=== PATIENT | female | born 1965 | race African-American/Black ===

== ENCOUNTER 2017-07-13 07:50 | Inpatient (IN) | payer OTHER ==
[2017-07-13 08:35] LABS: ADD MAN DIFF? NO
[2017-07-13 08:38] LABS: WHITE BLOOD COUNT 4.4 10^3/ul (4.8-10.8)
[2017-07-13 08:38] LABS: BASOPHILS % 0.9 % (0.0-2.0); EOSINOPHILS # 0.2 10^3/ul (0.0-0.5); EOSINOPHILS % 3.9 % (0.0-7.0); HEMATOCRIT 26.4 % (37.0-47.0); HEMOGLOBIN 8.1 g/dl (12.0-16.0); LYMPHOCYTES # 1.9 10^3/ul (0.8-2.9); LYMPHOCYTES % 43.6 % (15.0-51.0); MEAN CORPUSCULAR HEMOGLOBIN 32.4 pg (29.0-33.0); MEAN CORPUSCULAR HGB CONC 30.7 g/dl (32.0-37.0); MEAN CORPUSCULAR VOLUME 105.6 fl (82.0-101.0); MEAN PLATELET VOLUME 12.8 fl (7.4-10.4); MONOCYTE # 0.6 10^3/ul (0.3-0.9); MONOCYTES % 12.6 % (0.0-11.0); NEUTROPHIL # 1.7 10^3/ul (1.6-7.5); NEUTROPHILS % 37.9 % (39.0-77.0); PLATELET COUNT 143 10^3/UL (140-415); RED CELL DISTRIBUTION WIDTH 13.4 % (11.5-14.5)
[2017-07-13 09:11] LABS: INR 1.08; PROTIME 14.1 Sec (11.9-14.9); PT RATIO 1.1
[2017-07-13 09:12] LABS: PARTIAL THROMBOPLASTIN TIME 25.2 Sec (25.0-35.0)
[2017-07-13 09:18] LABS: ALANINE AMINOTRANSFERASE 22 IU/L (13-69); ALBUMIN 3.2 g/dl (3.3-4.9); ALKALINE PHOSPHATASE 137 IU/L (42-121); ANION GAP 21 (8-16); ASPARTATE AMINO TRANSFERASE 24 IU/L (15-46); BLOOD UREA NITROGEN 41 mg/dl (7-20); CALCIUM 8.6 mg/dl (8.4-10.2); CARBON DIOXIDE 20 mmol/L (21-31); CHLORIDE 104 mmol/L (97-110); CREATININE 8.42 mg/dl (0.44-1.00); SODIUM 139 mmol/L (135-144); TOTAL PROTEIN 6.1 g/dl (6.1-8.1)
[2017-07-13 09:19] LABS: POTASSIUM 5.5 mmol/L (3.5-5.1)
[2017-07-13 09:21] LABS: GLUCOSE 425 mg/dl (70-220)
[2017-07-13 09:29] LABS: TROPONIN-I 0.019 ng/ml (0.00-0.12)
[2017-07-13] MEDS: SOD CHLORIDE 0.9% 250 ML IV (09:42)
[2017-07-13] MEDS: ONDANSETRON 4 MG INJ IV ×2 (09:42→17:55)
[2017-07-13] MEDS: SOD CHLORIDE 0.9% 500 ML IV (09:45)
[2017-07-13] MEDS ORDERED: ACETAMINOPHEN 325 MG TAB PO (10:30)
[2017-07-13] MEDS ORDERED: ZOLPIDEM 5 MG TAB PO (11:30)
[2017-07-13] MEDS ORDERED: GLUCOSE GEL 15 GRAM TUBE BUCCAL (12:00)
[2017-07-13] MEDS ORDERED: GLUCOSE GEL 15 GRAM TUBE PO (12:00)
[2017-07-13] MEDS ORDERED: GLUCAGON 1 MG INJ IM (12:00)
[2017-07-13] MEDS ORDERED: DEXTROSE 50% 50 ML SYRINGE IV ×2 (12:00)
[2017-07-13] MEDS: DILTIAZEM (CD) 240 MG CAP PO (12:36)
[2017-07-13] MEDS: HYDROCODONE/APAP (5/325) TAB PO ×2 (12:37→23:03)
[2017-07-13] MEDS: INSULIN ASPART [NOVOLOG] 3 ML PEN SC ×3 (12:38→20:58)
[2017-07-13] MEDS: INSULIN GLARGINE [LANtus] 3 ML PEN SC (12:40)
[2017-07-13 14:05] LABS: IMMEDIATE SPIN CROSSMATCH 1 2
[2017-07-13] MEDS: CHLORHEXIDINE GLUCONATE 15 ML UD CUP MT ×2 (15:49→20:58)
[2017-07-13] MEDS: NA POLYST SULFON 15 GM/60 ML BTL PO (15:49)
[2017-07-13] MEDS ORDERED: ALBUTEROL/IPRATROPIUM (NEB) 3 ML AMP HHN (16:00)
[2017-07-13] MEDS: ALBUTEROL/IPRATROPIUM (NEB) 3 ML AMP HHN (16:09)
[2017-07-13] MEDS: EPOETIN 3000 UNITS/1 ML INJ (ESRD) SC (17:30)
[2017-07-13] MEDS: FUROSEMIDE 40 MG TAB PO (17:30)
[2017-07-13] MEDS: FERROUS SULFATE (EC) 325 MG TAB PO (20:52)
[2017-07-13] MEDS: DOCUSATE SODIUM 100 MG CAP PO (20:53)
[2017-07-13] MEDS: CHOLECALCIFEROL 400 UNITS TAB PO (22:58)
[2017-07-14] MEDS: LORAZEPAM 2 MG INJ IV ×3 (00:48→23:41)
[2017-07-14] MEDS: FUROSEMIDE 40 MG TAB PO ×2 (06:13→17:16)
[2017-07-14] MEDS: INSULIN ASPART [NOVOLOG] 3 ML PEN SC ×4 (08:00→20:49)
[2017-07-14 08:17] LABS: ADD MAN DIFF? NO
[2017-07-14 08:30] LABS: ABNORMAL IP MESSAGE 1; BASOPHILS % 0.2 % (0.0-2.0); EOSINOPHILS # 0.1 10^3/ul (0.0-0.5); EOSINOPHILS % 1.7 % (0.0-7.0); HEMATOCRIT 23.8 % (37.0-47.0); LYMPHOCYTES # 1.7 10^3/ul (0.8-2.9); LYMPHOCYTES % 20.9 % (15.0-51.0); MEAN CORPUSCULAR HEMOGLOBIN 31.6 pg (29.0-33.0); MEAN CORPUSCULAR HGB CONC 33.6 g/dl (32.0-37.0); MEAN CORPUSCULAR VOLUME 94.1 fl (82.0-101.0); MEAN PLATELET VOLUME 12.8 fl (7.4-10.4); MONOCYTE # 0.9 10^3/ul (0.3-0.9); MONOCYTES % 11.3 % (0.0-11.0); NEUTROPHIL # 5.3 10^3/ul (1.6-7.5); NEUTROPHILS % 65.5 % (39.0-77.0); PLATELET COUNT 99 10^3/UL (140-415); RED BLOOD COUNT 2.53 10^6/ul (4.20-5.40); RED CELL DISTRIBUTION WIDTH 17.2 % (11.5-14.5)
[2017-07-14] MEDS: DOCUSATE SODIUM 100 MG CAP PO ×2 (08:32→20:43)
[2017-07-14] MEDS: FOLIC ACID 1 MG TAB PO (08:32)
[2017-07-14] MEDS: FERROUS SULFATE (EC) 325 MG TAB PO ×2 (08:32→20:49)
[2017-07-14] MEDS: CHLORHEXIDINE GLUCONATE 15 ML UD CUP MT ×2 (08:32→20:44)
[2017-07-14] MEDS: CHOLECALCIFEROL 400 UNITS TAB PO ×2 (08:33→20:43)
[2017-07-14 08:34] LABS: POSITIVE DIFF @See below
[2017-07-14] MEDS: DILTIAZEM (CD) 240 MG CAP PO (08:34)
[2017-07-14] MEDS: INSULIN GLARGINE [LANtus] 3 ML PEN SC (08:42)
[2017-07-14 08:45] LABS: ANION GAP 15 (8-16); BLOOD UREA NITROGEN 51 mg/dl (7-20); CALCIUM 8.3 mg/dl (8.4-10.2); CARBON DIOXIDE 26 mmol/L (21-31); CHLORIDE 104 mmol/L (97-110); CREATININE 9.23 mg/dl (0.44-1.00); GLUCOSE 117 mg/dl (70-220); MAGNESIUM 2.3 mg/dl (1.7-2.5); POTASSIUM 4.1 mmol/L (3.5-5.1); SODIUM 141 mmol/L (135-144)
[2017-07-14 08:51] LABS: PHOSPHORUS 5.9 mg/dl (2.5-4.9)
[2017-07-14 11:14] LABS: IRON 93 ug/dl (35-150)
[2017-07-14 11:23] LABS: % IRON SATURATION 53 % SAT (22-52); TOTAL IRON BINDING CAPACITY 175 ug/dl (241-421)
[2017-07-14 15:25] LABS: HEPATITIS B SURFACE ANTIGEN NEGATIVE (NEGATIVE)
[2017-07-14 15:42] LABS: HEPATITIS B SURFACE ANTIBODY POSITIVE (NEGATIVE)
[2017-07-14] MEDS: HYDROCODONE/APAP (5/325) TAB PO (16:43)
[2017-07-14] MEDS: CALCIUM ACETATE 667 MG CAP GTB (17:15)
[2017-07-15] MEDS: FUROSEMIDE 40 MG TAB PO ×2 (05:22→18:41)
[2017-07-15 07:11] LABS: ADD MAN DIFF? NO
[2017-07-15 07:20] LABS: WHITE BLOOD COUNT 8.2 10^3/ul (4.8-10.8)
[2017-07-15 07:20] LABS: ABNORMAL IP MESSAGE 1; BASOPHILS % 0.2 % (0.0-2.0); EOSINOPHILS # 0.1 10^3/ul (0.0-0.5); HEMATOCRIT 21.6 % (37.0-47.0); HEMOGLOBIN 7.1 g/dl (12.0-16.0); LYMPHOCYTES # 1.1 10^3/ul (0.8-2.9); LYMPHOCYTES % 13.5 % (15.0-51.0); MEAN CORPUSCULAR HEMOGLOBIN 31.3 pg (29.0-33.0); MEAN CORPUSCULAR HGB CONC 32.9 g/dl (32.0-37.0); MEAN CORPUSCULAR VOLUME 95.2 fl (82.0-101.0); MEAN PLATELET VOLUME 12.9 fl (7.4-10.4); MONOCYTE # 0.8 10^3/ul (0.3-0.9); MONOCYTES % 10.2 % (0.0-11.0); NEUTROPHIL # 6.1 10^3/ul (1.6-7.5); NEUTROPHILS % 74.7 % (39.0-77.0); PLATELET COUNT 95 10^3/UL (140-415); RED BLOOD COUNT 2.27 10^6/ul (4.20-5.40); RED CELL DISTRIBUTION WIDTH 16.3 % (11.5-14.5)
[2017-07-15 07:27] LABS: POSITIVE DIFF @See below
[2017-07-15 07:31] LABS: ANION GAP 14 (8-16); BLOOD UREA NITROGEN 39 mg/dl (7-20); CALCIUM 8.1 mg/dl (8.4-10.2); CARBON DIOXIDE 27 mmol/L (21-31); CHLORIDE 103 mmol/L (97-110); GLUCOSE 221 mg/dl (70-220); SODIUM 140 mmol/L (135-144)
[2017-07-15] MEDS: FERROUS SULFATE (EC) 325 MG TAB PO ×2 (08:13→20:36)
[2017-07-15] MEDS: FOLIC ACID 1 MG TAB PO (08:14)
[2017-07-15] MEDS: DILTIAZEM (CD) 240 MG CAP PO (08:14)
[2017-07-15] MEDS: DOCUSATE SODIUM 100 MG CAP PO ×2 (08:15→20:36)
[2017-07-15] MEDS: CHLORHEXIDINE GLUCONATE 15 ML UD CUP MT ×2 (08:15→20:38)
[2017-07-15] MEDS: CALCIUM ACETATE 667 MG CAP GTB ×3 (08:15→18:40)
[2017-07-15] MEDS: CHOLECALCIFEROL 400 UNITS TAB PO ×2 (08:15→20:36)
[2017-07-15] MEDS: INSULIN ASPART [NOVOLOG] 3 ML PEN SC ×6 (08:18→20:40)
[2017-07-15] MEDS: INSULIN GLARGINE [LANtus] 3 ML PEN SC ×2 (08:21→13:46)
[2017-07-15] MEDS: ONDANSETRON 4 MG INJ IV (09:12)
[2017-07-15] MEDS ORDERED: VITAMIN A & D 5 GM OINT PACKET TOP (11:00)
[2017-07-15 12:22] LABS: HEMATOCRIT 24.7 % (37.0-47.0); HEMOGLOBIN 8.2 g/dl (12.0-16.0)
[2017-07-15 12:51] LABS: INR 0.94; PROTIME 12.7 Sec (11.9-14.9)
[2017-07-15 12:52] LABS: PARTIAL THROMBOPLASTIN TIME 26.8 Sec (25.0-35.0)
[2017-07-15 14:23] LABS: RETICULOCYTE COUNT # 0.074 X10^6 (0.020-0.110); RETICULOCYTE COUNT % 2.8 % (0.5-1.5)
[2017-07-15 14:23] LABS: RETICULOCYTE RBC 2.63
[2017-07-15 14:28] LABS: IRON 47 ug/dl (35-150)
[2017-07-15 14:30] LABS: URIC ACID 5.3 mg/dl (3.1-7.9)
[2017-07-15 14:30] LABS: LACTATE DEHYDROGENASE 335 IU/L (313-618)
[2017-07-15 14:38] LABS: % IRON SATURATION 25 % SAT (22-52); TOTAL IRON BINDING CAPACITY 189 ug/dl (241-421)
[2017-07-15] MEDS: LORAZEPAM 2 MG INJ IV ×3 (14:40→22:04)
[2017-07-15 15:30] LABS: CARCINOEMBRYONIC ANTIGEN 3.2 ng/ml (0.0-5.0)
[2017-07-15 15:32] LABS: ERYTHROCYTE SEDIMENTATION RATE 35 mm/Hr (0-30)
[2017-07-15 15:50] LABS: FOLATE > 20.0 ng/ml (2.8-20.0)
[2017-07-15] MEDS: GLUCOSE GEL 15 GRAM TUBE PO (18:20)
[2017-07-15] MEDS: EPOETIN 3000 UNITS/1 ML INJ (ESRD) SC (18:42)
[2017-07-15] MEDS ORDERED: ALBUMIN HUMAN 25% 50 ML IV (19:00)
[2017-07-15] MEDS ORDERED: HEPARIN 1000 UNITS/ML 10 ML INJ CATHETER (19:00)
[2017-07-15] MEDS ORDERED: SODIUM CHLORIDE 0.9% 1L BAG IV (19:00)
[2017-07-15 20:06] LABS: PLATELET COUNT 101 10^3/UL (140-415)
[2017-07-15 20:11] LABS: INR 0.98; PROTIME 13.1 Sec (11.9-14.9)
[2017-07-15 20:12] LABS: PARTIAL THROMBOPLASTIN TIME 27.6 Sec (25.0-35.0)
[2017-07-15 20:13] LABS: THROMBIN TIME 15.2 SEC (13.8-19.1)
[2017-07-15 20:37] LABS: FIBRIN SPLIT PRODUCT <10 ug/ml (<10)
[2017-07-15] MEDS: HYDROCODONE/APAP (5/325) TAB PO (20:48)
[2017-07-16 04:17] LABS: OCCULT BLOOD STOOL NEGATIVE (NEGATIVE)
[2017-07-16 06:17] LABS: ADD MAN DIFF? NO
[2017-07-16] MEDS: FUROSEMIDE 40 MG TAB PO ×2 (06:19→17:26)
[2017-07-16 06:21] LABS: WHITE BLOOD COUNT 6.4 10^3/ul (4.8-10.8)
[2017-07-16 06:21] LABS: BASOPHILS % 0.3 % (0.0-2.0); EOSINOPHILS # 0.1 10^3/ul (0.0-0.5); HEMATOCRIT 21.5 % (37.0-47.0); HEMOGLOBIN 7.1 g/dl (12.0-16.0); LYMPHOCYTES # 1.5 10^3/ul (0.8-2.9); LYMPHOCYTES % 23.5 % (15.0-51.0); MEAN CORPUSCULAR HEMOGLOBIN 31.4 pg (29.0-33.0); MEAN CORPUSCULAR VOLUME 95.1 fl (82.0-101.0); MEAN PLATELET VOLUME 12.6 fl (7.4-10.4); MONOCYTE # 0.8 10^3/ul (0.3-0.9); MONOCYTES % 12.6 % (0.0-11.0); NEUTROPHIL # 3.9 10^3/ul (1.6-7.5); NEUTROPHILS % 61.3 % (39.0-77.0); PLATELET COUNT 106 10^3/UL (140-415); RED BLOOD COUNT 2.26 10^6/ul (4.20-5.40); RED CELL DISTRIBUTION WIDTH 15.4 % (11.5-14.5)
[2017-07-16 07:01] LABS: ANION GAP 15 (8-16); BLOOD UREA NITROGEN 45 mg/dl (7-20); CALCIUM 8.5 mg/dl (8.4-10.2); CARBON DIOXIDE 27 mmol/L (21-31); CHLORIDE 104 mmol/L (97-110); CREATININE 8.42 mg/dl (0.44-1.00); GLUCOSE 106 mg/dl (70-220); SODIUM 142 mmol/L (135-144)
[2017-07-16] MEDS: INSULIN ASPART [NOVOLOG] 3 ML PEN SC ×7 (07:56→21:00)
[2017-07-16] MEDS: LORAZEPAM 2 MG INJ IV ×2 (07:57→23:14)
[2017-07-16] MEDS: CALCIUM ACETATE 667 MG CAP GTB ×3 (07:57→17:25)
[2017-07-16] MEDS: DILTIAZEM (CD) 240 MG CAP PO (09:00)
[2017-07-16] MEDS: CHLORHEXIDINE GLUCONATE 15 ML UD CUP MT ×2 (09:08→21:02)
[2017-07-16] MEDS: DOCUSATE SODIUM 100 MG CAP PO ×2 (09:09→21:02)
[2017-07-16] MEDS: POLYETHYLENE GLYCOL 17 GM PACKET PO (09:09)
[2017-07-16] MEDS: FERROUS SULFATE (EC) 325 MG TAB PO ×2 (09:09→21:02)
[2017-07-16] MEDS: FOLIC ACID 1 MG TAB PO (09:09)
[2017-07-16] MEDS: CHOLECALCIFEROL 400 UNITS TAB PO ×2 (09:09→21:02)
[2017-07-16] MEDS: INSULIN GLARGINE [LANtus] 3 ML PEN SC (09:15)
[2017-07-16 14:01] LABS: HEMATOCRIT 22.6 % (37.0-47.0); HEMOGLOBIN 7.3 g/dl (12.0-16.0)
[2017-07-16] MEDS: ALPRAZOLAM 0.25 MG TAB PO (14:54)
[2017-07-16] MEDS: HYDROCODONE/APAP (5/325) TAB PO (14:54)
[2017-07-16 17:53] LABS: HEMOGLOBIN A1C 6.6 % (0-5.9)
[2017-07-16] MEDS: SOD CHLORIDE 0.9% 250 ML IV* (18:00)
[2017-07-17 02:25] LABS: IMMEDIATE SPIN CROSSMATCH 1 2
[2017-07-17] MEDS: FUROSEMIDE 40 MG TAB PO ×2 (06:40→18:13)
[2017-07-17] MEDS: HYDROCODONE/APAP (5/325) TAB PO ×2 (06:44→20:12)
[2017-07-17 06:51] LABS: PROTEIN, TOTAL 5.5 g/dL (6.1-8.1)
[2017-07-17] MEDS: ONDANSETRON 4 MG INJ IV (08:10)
[2017-07-17] MEDS: INSULIN ASPART [NOVOLOG] 3 ML PEN SC ×7 (08:15→21:00)
[2017-07-17] MEDS: CHLORHEXIDINE GLUCONATE 15 ML UD CUP MT ×2 (08:25→21:05)
[2017-07-17] MEDS: CALCIUM ACETATE 667 MG CAP GTB ×3 (08:25→18:10)
[2017-07-17] MEDS: POLYETHYLENE GLYCOL 17 GM PACKET PO (08:25)
[2017-07-17] MEDS: DOCUSATE SODIUM 100 MG CAP PO ×2 (08:27→21:04)
[2017-07-17] MEDS: DILTIAZEM (CD) 240 MG CAP PO (08:27)
[2017-07-17] MEDS: CHOLECALCIFEROL 400 UNITS TAB PO ×2 (08:27→21:04)
[2017-07-17] MEDS: FOLIC ACID 1 MG TAB PO (08:27)
[2017-07-17] MEDS: FERROUS SULFATE (EC) 325 MG TAB PO ×2 (08:27→21:04)
[2017-07-17] MEDS: INSULIN GLARGINE [LANtus] 3 ML PEN SC (08:31)
[2017-07-17 10:58] LABS: ADD MAN DIFF? NO
[2017-07-17 11:00] LABS: WHITE BLOOD COUNT 7.4 10^3/ul (4.8-10.8)
[2017-07-17 11:00] LABS: BASOPHILS % 0.4 % (0.0-2.0); EOSINOPHILS # 0.1 10^3/ul (0.0-0.5); EOSINOPHILS % 1.6 % (0.0-7.0); HEMATOCRIT 32.4 % (37.0-47.0); HEMOGLOBIN 10.9 g/dl (12.0-16.0); LYMPHOCYTES # 1.3 10^3/ul (0.8-2.9); LYMPHOCYTES % 17.7 % (15.0-51.0); MEAN CORPUSCULAR HEMOGLOBIN 31.2 pg (29.0-33.0); MEAN CORPUSCULAR HGB CONC 33.6 g/dl (32.0-37.0); MEAN CORPUSCULAR VOLUME 92.8 fl (82.0-101.0); MEAN PLATELET VOLUME 12.2 fl (7.4-10.4); MONOCYTE # 0.7 10^3/ul (0.3-0.9); MONOCYTES % 8.8 % (0.0-11.0); NEUTROPHIL # 5.3 10^3/ul (1.6-7.5); NEUTROPHILS % 71.2 % (39.0-77.0); PLATELET COUNT 126 10^3/UL (140-415); RED BLOOD COUNT 3.49 10^6/ul (4.20-5.40); RED CELL DISTRIBUTION WIDTH 15.8 % (11.5-14.5)
[2017-07-17 11:21] LABS: ANION GAP 19 (8-16); BLOOD UREA NITROGEN 50 mg/dl (7-20); CALCIUM 9.1 mg/dl (8.4-10.2); CARBON DIOXIDE 26 mmol/L (21-31); CHLORIDE 100 mmol/L (97-110); CREATININE 9.21 mg/dl (0.44-1.00); GLUCOSE 114 mg/dl (70-220); POTASSIUM 4.6 mmol/L (3.5-5.1); SODIUM 140 mmol/L (135-144)
[2017-07-17] MEDS: LORAZEPAM 2 MG INJ IV ×2 (13:49→21:55)
[2017-07-18] MEDS: FUROSEMIDE 40 MG TAB PO ×2 (07:07→17:37)
[2017-07-18] MEDS: HYDROCODONE/APAP (5/325) TAB PO (07:07)
[2017-07-18] MEDS: ONDANSETRON 4 MG INJ IV (07:42)
[2017-07-18] MEDS: INSULIN ASPART [NOVOLOG] 3 ML PEN SC ×7 (08:15→20:37)
[2017-07-18] MEDS: DILTIAZEM (CD) 240 MG CAP PO (08:23)
[2017-07-18] MEDS: POLYETHYLENE GLYCOL 17 GM PACKET PO (08:23)
[2017-07-18] MEDS: FERROUS SULFATE (EC) 325 MG TAB PO ×2 (08:23→20:33)
[2017-07-18] MEDS: CHOLECALCIFEROL 400 UNITS TAB PO ×2 (08:23→20:33)
[2017-07-18] MEDS: DOCUSATE SODIUM 100 MG CAP PO ×2 (08:24→20:32)
[2017-07-18] MEDS: FOLIC ACID 1 MG TAB PO (08:24)
[2017-07-18] MEDS: CHLORHEXIDINE GLUCONATE 15 ML UD CUP MT ×2 (08:24→20:33)
[2017-07-18] MEDS: CALCIUM ACETATE 667 MG CAP GTB ×3 (08:24→17:36)
[2017-07-18] MEDS: INSULIN GLARGINE [LANtus] 3 ML PEN SC (08:27)
[2017-07-18] MEDS ORDERED: LORAZEPAM 1 MG TAB PO (16:00)
[2017-07-18] MEDS: EPOETIN 3000 UNITS/1 ML INJ (ESRD) SC (17:38)
[2017-07-18] MEDS: LORAZEPAM 1 MG TAB PO (20:32)
[2017-07-19] MEDS: FUROSEMIDE 40 MG TAB PO ×2 (06:08→18:00)
[2017-07-19 06:10] LABS: ALANINE AMINOTRANSFERASE 24 IU/L (13-69); ALBUMIN 3.3 g/dl (3.3-4.9); ALBUMIN/GLOBULIN RATIO 1.06; ALKALINE PHOSPHATASE 111 IU/L (42-121); ANION GAP 19 (8-16); ASPARTATE AMINO TRANSFERASE 14 IU/L (15-46); BLOOD UREA NITROGEN 69 mg/dl (7-20); CALCIUM 8.9 mg/dl (8.4-10.2); CARBON DIOXIDE 23 mmol/L (21-31); CHLORIDE 101 mmol/L (97-110); CREATININE 10.17 mg/dl (0.44-1.00); GLUCOSE 139 mg/dl (70-220); POTASSIUM 4.8 mmol/L (3.5-5.1); SODIUM 138 mmol/L (135-144); TOTAL PROTEIN 6.4 g/dl (6.1-8.1)
[2017-07-19] MEDS: CALCIUM ACETATE 667 MG CAP GTB ×4 (08:03→19:30)
[2017-07-19] MEDS: FOLIC ACID 1 MG TAB PO (08:03)
[2017-07-19] MEDS: CHOLECALCIFEROL 400 UNITS TAB PO ×2 (08:03→21:00)
[2017-07-19] MEDS: FERROUS SULFATE (EC) 325 MG TAB PO ×3 (08:03→21:00)
[2017-07-19] MEDS: DOCUSATE SODIUM 100 MG CAP PO ×2 (08:03→21:00)
[2017-07-19] MEDS: POLYETHYLENE GLYCOL 17 GM PACKET PO (08:04)
[2017-07-19] MEDS: ACETAMINOPHEN 325 MG TAB PO (08:04)
[2017-07-19] MEDS: CHLORHEXIDINE GLUCONATE 15 ML UD CUP MT ×2 (08:04→21:00)
[2017-07-19] MEDS: INSULIN ASPART [NOVOLOG] 3 ML PEN SC ×8 (08:07→22:50)
[2017-07-19] MEDS: DILTIAZEM (CD) 240 MG CAP PO (08:17)
[2017-07-19] MEDS: INSULIN GLARGINE [LANtus] 3 ML PEN SC (08:19)
[2017-07-19] MEDS: HYDROCODONE/APAP (5/325) TAB PO ×2 (11:44→20:00)
[2017-07-19 14:23] LABS: HEPARIN INDUCED PLATELET AB NEGATIVE (NEGATIVE)
[2017-07-19] MEDS: LORAZEPAM 2 MG INJ IV (15:08)
[2017-07-19] MEDS: ONDANSETRON 4 MG INJ IV (15:14)
[2017-07-19] MEDS ORDERED: SODIUM CHLORIDE 0.9% 1L BAG IV (16:00)
[2017-07-19] MEDS ORDERED: ALBUMIN HUMAN 25% 50 ML IV (16:00)
[2017-07-19 17:21] LABS: HAPTOGLOBIN 122 mg/dL (43-212)
[2017-07-19] MEDS ORDERED: FENTAnyl 50 MCG/ML VIAL (17:24)
[2017-07-19] MEDS ORDERED: MIDAZOLAM 1 MG/ML 2 ML INJ (17:25)
[2017-07-19] MEDS: LORAZEPAM 1 MG TAB PO (20:00)
[2017-07-19 23:51] LABS: ALBUMIN 2.9 g/dL (3.8-4.8); ALPHA-1-GLOBULINS 0.3 g/dL (0.2-0.3); ALPHA-2-GLOBULINS 0.6 g/dL (0.5-0.9); BETA 2 GLOBULINS 0.6 g/dL (0.2-0.5); BETA GLOBULINS 0.3 g/dL (0.4-0.6); GAMMA GLOBULINS 0.8 g/dL (0.8-1.7)
[2017-07-20] MEDS: HEPARIN 1000 UNITS/ML 10 ML INJ CATHETER (01:03)
[2017-07-20] MEDS: HYDROCODONE/APAP (5/325) TAB PO ×3 (01:19→12:02)
[2017-07-20] MEDS: LORAZEPAM 1 MG TAB PO ×2 (02:52→10:16)
[2017-07-20] MEDS: FUROSEMIDE 40 MG TAB PO (05:37)
[2017-07-20] MEDS: CHLORHEXIDINE GLUCONATE 15 ML UD CUP MT (08:15)
[2017-07-20] MEDS: FERROUS SULFATE (EC) 325 MG TAB PO (08:15)
[2017-07-20] MEDS: INSULIN ASPART [NOVOLOG] 3 ML PEN SC ×5 (08:15→12:15)
[2017-07-20] MEDS: POLYETHYLENE GLYCOL 17 GM PACKET PO (08:15)
[2017-07-20] MEDS: FOLIC ACID 1 MG TAB PO (08:15)
[2017-07-20] MEDS: CALCIUM ACETATE 667 MG CAP GTB ×2 (08:16→12:02)
[2017-07-20] MEDS: DILTIAZEM (CD) 240 MG CAP PO (08:16)
[2017-07-20] MEDS: CHOLECALCIFEROL 400 UNITS TAB PO (08:16)
[2017-07-20] MEDS: DOCUSATE SODIUM 100 MG CAP PO (08:16)
[2017-07-20] MEDS: INSULIN GLARGINE [LANtus] 3 ML PEN SC (08:19)
== END 2017-07-20 14:10 | disposition home or self-care (01) | DRG 314 ==
LOC: MS2 07-15 14:03 → E/R 07:50 → TEL 10:20 → MS4 17:08
PROC: 0JH63XZ Insertion of Tunneled Vascular Access Device into Chest Subcutaneous Tissue and Fascia, Percutaneous Approach (ICD-10-PCS; principal; 2017-07-19 17:20)
PROC: 02HV33Z Insertion of Infusion Device into Superior Vena Cava, Percutaneous Approach (ICD-10-PCS; 2017-07-19 17:20)
PROC: B518YZA Fluoroscopy of Superior Vena Cava using Other Contrast, Guidance (ICD-10-PCS; 2017-07-19 17:20)
PROC: 5A1D70Z Performance of Urinary Filtration, Intermittent, Less than 6 Hours Per Day (ICD-10-PCS; 2017-07-19 17:20)
PROC: 30233N1 Transfusion of Nonautologous Red Blood Cells into Peripheral Vein, Percutaneous Approach (ICD-10-PCS; 2017-07-19 17:20)
DX: T82.838A Hemorrhage due to vascular prosthetic devices, implants and grafts, initial encounter (principal); N18.6 End stage renal disease; I12.0 Hypertensive chronic kidney disease with stage 5 chronic kidney disease or end stage renal disease; E11.22 Type 2 diabetes mellitus with diabetic chronic kidney disease; D69.6 Thrombocytopenia, unspecified; D62 Acute posthemorrhagic anemia; B19.10 Unspecified viral hepatitis B without hepatic coma; D63.1 Anemia in chronic kidney disease; E11.65 Type 2 diabetes mellitus with hyperglycemia; E78.5 Hyperlipidemia, unspecified; E83.39 Other disorders of phosphorus metabolism; E87.5 Hyperkalemia; F41.9 Anxiety disorder, unspecified; K08.89 Other specified disorders of teeth and supporting structures; S00.33XA Contusion of nose, initial encounter; S00.531A Contusion of lip, initial encounter; S00.83XA Contusion of other part of head, initial encounter; W18.30XA Fall on same level, unspecified, initial encounter; T82.858A Stenosis of other vascular prosthetic devices, implants and grafts, initial encounter; Z89.612 Acquired absence of left leg above knee; Z99.2 Dependence on renal dialysis; Z79.4 Long term (current) use of insulin; Z79.82 Long term (current) use of aspirin
CPT/HCPCS: 36415; 36430; 70450; 76700; 80048; 80053; 82270; 82306; 82378; 82607; 82728; 82746; 82962; 83010; 83036; 83540; 83615; 83735; 84100; 84155; 84165; 84443; 84484; 84560; 85014; 85018; 85025; 85045; 85049; 85362; 85378; 85384; 85610; 85651; 85670; 85730; 86022; 86706; 86850; 86900; 86901; 86920; 87340; 90935; 93005; 93931; 93970; 94664; 96372; 96374; 97116; 97163; 97530; 99291-25

== ENCOUNTER 2017-07-23 06:08 | Emergency (ER) | payer OTHER ==
[2017-07-23 08:21] LABS: ADD MAN DIFF? NO
[2017-07-23 08:25] LABS: BASOPHIL # 0.1 10^3/ul (0.0-0.1); BASOPHILS % 0.5 % (0.0-2.0); EOSINOPHILS # 0.2 10^3/ul (0.0-0.5); EOSINOPHILS % 2.2 % (0.0-7.0); HEMOGLOBIN 10.5 g/dl (12.0-16.0); LYMPHOCYTES # 0.7 10^3/ul (0.8-2.9); LYMPHOCYTES % 7.1 % (15.0-51.0); MEAN CORPUSCULAR HEMOGLOBIN 30.9 pg (29.0-33.0); MEAN CORPUSCULAR HGB CONC 31.8 g/dl (32.0-37.0); MEAN CORPUSCULAR VOLUME 97.1 fl (82.0-101.0); MEAN PLATELET VOLUME 11.7 fl (7.4-10.4); MONOCYTES % 9.7 % (0.0-11.0); PLATELET COUNT 187 10^3/UL (140-415); RED CELL DISTRIBUTION WIDTH 15.2 % (11.5-14.5)
[2017-07-23 08:46] LABS: ALANINE AMINOTRANSFERASE 15 IU/L (13-69); ALBUMIN 3.8 g/dl (3.3-4.9); ALBUMIN/GLOBULIN RATIO 1.05; ALKALINE PHOSPHATASE 140 IU/L (42-121); ANION GAP 19 (8-16); ASPARTATE AMINO TRANSFERASE 25 IU/L (15-46); BLOOD UREA NITROGEN 48 mg/dl (7-20); CALCIUM 9.3 mg/dl (8.4-10.2); CARBON DIOXIDE 27 mmol/L (21-31); CHLORIDE 101 mmol/L (97-110); CREATINE KINASE 367 IU/L (23-200); CREATININE 7.62 mg/dl (0.44-1.00); GLUCOSE 148 mg/dl (70-220); POTASSIUM 5.8 mmol/L (3.5-5.1); SODIUM 141 mmol/L (135-144); TOTAL PROTEIN 7.4 g/dl (6.1-8.1)
[2017-07-23 08:58] LABS: CK INDEX 0.4; CK-MB 1.55 ng/ml (0.0-2.4); TROPONIN-I 0.032 ng/ml (0.00-0.12)
[2017-07-23] MEDS: NA POLYST SULFON 15 GM/60 ML BTL PO (11:24)
[2017-07-23] MEDS: NA BICARBONATE 650 MG TAB PO (11:30)
[2017-07-23] MEDS: ALBUTEROL 0.5% (NEB) 2.5 MG/0.5 ML AMP INH (12:35)
== END 2017-07-23 14:09 | disposition home or self-care (01) ==
LOC: E/R 06:08
DX: T40.7X1A Poisoning by cannabis (derivatives), accidental (unintentional), initial encounter (principal); R40.2142 Coma scale, eyes open, spontaneous, at arrival to emergency department; I12.0 Hypertensive chronic kidney disease with stage 5 chronic kidney disease or end stage renal disease; N18.6 End stage renal disease; R40.2362 Coma scale, best motor response, obeys commands, at arrival to emergency department; Z99.2 Dependence on renal dialysis; Z79.4 Long term (current) use of insulin; Z79.82 Long term (current) use of aspirin
CPT/HCPCS: 80053; 82550; 82553; 84484; 85025; 93005; 94664; 99284-25

== ENCOUNTER 2017-08-20 10:06 | Inpatient (IN) | payer OTHER ==
[2017-08-20] MEDS: LORAZEPAM 1 MG TAB PO (12:43)
[2017-08-20] MEDS: HYDROCODONE/APAP (5/325) TAB PO ×2 (12:43→21:48)
[2017-08-20 13:02] LABS: ADD MAN DIFF? NO
[2017-08-20 13:06] LABS: WHITE BLOOD COUNT 6.2 10^3/ul (4.8-10.8)
[2017-08-20 13:06] LABS: BASOPHILS % 0.6 % (0.0-2.0); EOSINOPHILS # 0.2 10^3/ul (0.0-0.5); EOSINOPHILS % 2.7 % (0.0-7.0); HEMATOCRIT 35.4 % (37.0-47.0); HEMOGLOBIN 11.6 g/dl (12.0-16.0); LYMPHOCYTES # 1.1 10^3/ul (0.8-2.9); LYMPHOCYTES % 17.9 % (15.0-51.0); MEAN CORPUSCULAR HEMOGLOBIN 31.1 pg (29.0-33.0); MEAN CORPUSCULAR HGB CONC 32.8 g/dl (32.0-37.0); MEAN CORPUSCULAR VOLUME 94.9 fl (82.0-101.0); MEAN PLATELET VOLUME 12.2 fl (7.4-10.4); MONOCYTE # 0.9 10^3/ul (0.3-0.9); MONOCYTES % 13.6 % (0.0-11.0); NEUTROPHILS % 64.9 % (39.0-77.0); PLATELET COUNT 161 10^3/UL (140-415); RED BLOOD COUNT 3.73 10^6/ul (4.20-5.40); RED CELL DISTRIBUTION WIDTH 14.4 % (11.5-14.5)
[2017-08-20 13:26] LABS: INR 0.93; PROTIME 12.6 Sec (11.9-14.9)
[2017-08-20 13:27] LABS: PARTIAL THROMBOPLASTIN TIME 29.2 Sec (25.0-35.0)
[2017-08-20 13:28] LABS: ALANINE AMINOTRANSFERASE 15 IU/L (13-69); ALBUMIN 4.2 g/dl (3.3-4.9); ALKALINE PHOSPHATASE 152 IU/L (42-121); ANION GAP 20 (8-16); ASPARTATE AMINO TRANSFERASE 20 IU/L (15-46); BLOOD UREA NITROGEN 38 mg/dl (7-20); CARBON DIOXIDE 26 mmol/L (21-31); CHLORIDE 99 mmol/L (97-110); CREATININE 6.64 mg/dl (0.44-1.00); GLUCOSE 157 mg/dl (70-220); POTASSIUM 4.5 mmol/L (3.5-5.1); SODIUM 140 mmol/L (135-144)
[2017-08-20] MEDS ORDERED: DOCUSATE SODIUM 100 MG CAP PO (15:30)
[2017-08-20] MEDS ORDERED: ACETAMINOPHEN 325 MG TAB PO (15:30)
[2017-08-20] MEDS ORDERED: GLUCAGON 1 MG INJ IM (16:00)
[2017-08-20] MEDS ORDERED: VANCOMYCIN IV PER PHARMACY XX (16:00)
[2017-08-20] MEDS ORDERED: GLUCOSE GEL 15 GRAM TUBE PO ×2 (16:00)
[2017-08-20] MEDS ORDERED: GLUCOSE GEL 15 GRAM TUBE BUCCAL (16:00)
[2017-08-20] MEDS ORDERED: DEXTROSE 50% 50 ML SYRINGE IV ×2 (16:00)
[2017-08-20] MEDS: INSULIN ASPART [NOVOLOG] 3 ML PEN SC ×3 (17:48→21:00)
[2017-08-20] MEDS: VANCOMYCIN 1.5 GM in SOD CHLORIDE 0.9% 250 ML IVPB (18:11)
[2017-08-20] MEDS: ONDANSETRON 4 MG INJ IV (18:39)
[2017-08-20] MEDS: FUROSEMIDE 40 MG TAB PO (18:39)
[2017-08-20] MEDS: CHOLECALCIFEROL 400 UNITS TAB PO ×2 (21:00→22:29)
[2017-08-20] MEDS: DOCUSATE SODIUM 100 MG CAP PO (21:44)
[2017-08-20] MEDS: FERROUS SULFATE (EC) 325 MG TAB PO (21:46)
[2017-08-20] MEDS: NACL 0.9% 3 ML SYG IV (23:17)
[2017-08-21] MEDS: FUROSEMIDE 40 MG TAB PO ×2 (05:13→17:02)
[2017-08-21 05:18] LABS: ADD MAN DIFF? NO
[2017-08-21 05:21] LABS: BASOPHILS % 0.8 % (0.0-2.0); EOSINOPHILS # 0.2 10^3/ul (0.0-0.5); EOSINOPHILS % 3.2 % (0.0-7.0); HEMATOCRIT 32.3 % (37.0-47.0); HEMOGLOBIN 10.7 g/dl (12.0-16.0); LYMPHOCYTES # 1.6 10^3/ul (0.8-2.9); LYMPHOCYTES % 29.1 % (15.0-51.0); MEAN CORPUSCULAR HEMOGLOBIN 31.1 pg (29.0-33.0); MEAN CORPUSCULAR HGB CONC 33.1 g/dl (32.0-37.0); MEAN CORPUSCULAR VOLUME 93.9 fl (82.0-101.0); MEAN PLATELET VOLUME 12.1 fl (7.4-10.4); MONOCYTE # 0.6 10^3/ul (0.3-0.9); NEUTROPHIL # 2.9 10^3/ul (1.6-7.5); NEUTROPHILS % 54.7 % (39.0-77.0); PLATELET COUNT 157 10^3/UL (140-415); RED BLOOD COUNT 3.44 10^6/ul (4.20-5.40); RED CELL DISTRIBUTION WIDTH 14.4 % (11.5-14.5)
[2017-08-21 05:21] LABS: WHITE BLOOD COUNT 5.3 10^3/ul (4.8-10.8)
[2017-08-21 05:51] LABS: ANION GAP 21 (8-16); BLOOD UREA NITROGEN 44 mg/dl (7-20); CARBON DIOXIDE 23 mmol/L (21-31); CHLORIDE 100 mmol/L (97-110); GLUCOSE 163 mg/dl (70-220); MAGNESIUM 2.2 mg/dl (1.7-2.5); PHOSPHORUS 5.8 mg/dl (2.5-4.9); POTASSIUM 4.3 mmol/L (3.5-5.1); SODIUM 140 mmol/L (135-144)
[2017-08-21] MEDS: INSULIN ASPART [NOVOLOG] 3 ML PEN SC ×7 (07:50→21:00)
[2017-08-21] MEDS: FERROUS SULFATE (EC) 325 MG TAB PO ×2 (08:34→21:06)
[2017-08-21] MEDS: CHOLECALCIFEROL 400 UNITS TAB PO ×2 (08:34→21:06)
[2017-08-21] MEDS: DILTIAZEM (CD) 240 MG CAP PO (08:35)
[2017-08-21] MEDS: DOCUSATE SODIUM 100 MG CAP PO ×2 (08:35→21:06)
[2017-08-21] MEDS: FOLIC ACID 1 MG TAB PO (08:35)
[2017-08-21] MEDS: ASPIRIN 81 MG TAB PO (08:35)
[2017-08-21] MEDS ORDERED: INSULIN GLARGINE [LANtus] 3 ML PEN SC (09:00)
[2017-08-21] MEDS: HYDROCODONE/APAP (5/325) TAB PO ×3 (10:05→23:07)
[2017-08-21] MEDS: INSULIN GLARGINE [LANtus] 3 ML PEN SC (21:10)
[2017-08-21] MEDS: LORAZEPAM 1 MG TAB PO (21:11)
[2017-08-22 05:13] LABS: ADD MAN DIFF? NO
[2017-08-22 05:22] LABS: WHITE BLOOD COUNT 5.1 10^3/ul (4.8-10.8)
[2017-08-22 05:22] LABS: BASOPHILS % 0.8 % (0.0-2.0); EOSINOPHILS # 0.2 10^3/ul (0.0-0.5); EOSINOPHILS % 3.6 % (0.0-7.0); HEMATOCRIT 33.3 % (37.0-47.0); HEMOGLOBIN 10.9 g/dl (12.0-16.0); LYMPHOCYTES # 1.5 10^3/ul (0.8-2.9); LYMPHOCYTES % 29.3 % (15.0-51.0); MEAN CORPUSCULAR HEMOGLOBIN 30.8 pg (29.0-33.0); MEAN CORPUSCULAR HGB CONC 32.7 g/dl (32.0-37.0); MEAN CORPUSCULAR VOLUME 94.1 fl (82.0-101.0); MEAN PLATELET VOLUME 11.8 fl (7.4-10.4); MONOCYTE # 0.8 10^3/ul (0.3-0.9); NEUTROPHIL # 2.6 10^3/ul (1.6-7.5); NEUTROPHILS % 50.9 % (39.0-77.0); PLATELET COUNT 158 10^3/UL (140-415); RED BLOOD COUNT 3.54 10^6/ul (4.20-5.40); RED CELL DISTRIBUTION WIDTH 14.1 % (11.5-14.5)
[2017-08-22] MEDS: FUROSEMIDE 40 MG TAB PO ×2 (05:57→18:00)
[2017-08-22 06:43] LABS: VANCOMYCIN,RANDOM 13.1 ug/ml
[2017-08-22 06:45] LABS: ALBUMIN 3.8 g/dl (3.3-4.9); ANION GAP 21 (8-16); BLOOD UREA NITROGEN 62 mg/dl (7-20); CALCIUM 9.8 mg/dl (8.4-10.2); CARBON DIOXIDE 24 mmol/L (21-31); CHLORIDE 100 mmol/L (97-110); CREATININE 8.99 mg/dl (0.44-1.00); GLUCOSE 135 mg/dl (70-220); MAGNESIUM 2.3 mg/dl (1.7-2.5); PHOSPHORUS 6.2 mg/dl (2.5-4.9); POTASSIUM 4.5 mmol/L (3.5-5.1); SODIUM 140 mmol/L (135-144)
[2017-08-22] MEDS: INSULIN ASPART [NOVOLOG] 3 ML PEN SC ×7 (07:50→20:48)
[2017-08-22] MEDS: LORAZEPAM 2 MG INJ IV (08:30)
[2017-08-22] MEDS: ASPIRIN 81 MG TAB PO (08:56)
[2017-08-22] MEDS: DOCUSATE SODIUM 100 MG CAP PO ×2 (08:56→20:36)
[2017-08-22] MEDS: DILTIAZEM (CD) 240 MG CAP PO (08:56)
[2017-08-22] MEDS: CHOLECALCIFEROL 400 UNITS TAB PO ×2 (08:57→20:37)
[2017-08-22] MEDS: FERROUS SULFATE (EC) 325 MG TAB PO ×2 (08:57→20:36)
[2017-08-22] MEDS: FOLIC ACID 1 MG TAB PO (08:57)
[2017-08-22] MEDS: VANCOMYCIN 1 GM 250 ML IVPB (08:58)
[2017-08-22] MEDS: ONDANSETRON 4 MG INJ IV (15:06)
[2017-08-22] MEDS: HYDROCODONE/APAP (5/325) TAB PO ×2 (16:29→20:35)
[2017-08-22] MEDS: LORAZEPAM 1 MG TAB PO (19:18)
[2017-08-22] MEDS: HEPARIN 1000 UNITS/ML 10 ML INJ CATHETER (19:20)
[2017-08-22] MEDS: BISACODYL (EC) 5 MG TAB PO (19:30)
[2017-08-22] MEDS ORDERED: BISACODYL 10 MG SUPP PR (19:30)
[2017-08-22] MEDS: LACTULOSE 30ML CUP PO (20:37)
[2017-08-23] MEDS: LORAZEPAM 1 MG TAB PO ×3 (01:09→21:26)
[2017-08-23 05:55] LABS: ADD MAN DIFF? NO
[2017-08-23 05:58] LABS: BASOPHILS % 0.6 % (0.0-2.0); EOSINOPHILS # 0.2 10^3/ul (0.0-0.5); EOSINOPHILS % 3.2 % (0.0-7.0); HEMATOCRIT 31.9 % (37.0-47.0); HEMOGLOBIN 10.6 g/dl (12.0-16.0); LYMPHOCYTES # 1.2 10^3/ul (0.8-2.9); LYMPHOCYTES % 22.1 % (15.0-51.0); MEAN CORPUSCULAR HEMOGLOBIN 31.5 pg (29.0-33.0); MEAN CORPUSCULAR HGB CONC 33.2 g/dl (32.0-37.0); MEAN CORPUSCULAR VOLUME 94.9 fl (82.0-101.0); MEAN PLATELET VOLUME 12.4 fl (7.4-10.4); MONOCYTE # 0.8 10^3/ul (0.3-0.9); MONOCYTES % 15.1 % (0.0-11.0); NEUTROPHIL # 3.1 10^3/ul (1.6-7.5); NEUTROPHILS % 58.6 % (39.0-77.0); PLATELET COUNT 135 10^3/UL (140-415); RED BLOOD COUNT 3.36 10^6/ul (4.20-5.40); RED CELL DISTRIBUTION WIDTH 14.6 % (11.5-14.5)
[2017-08-23 05:58] LABS: WHITE BLOOD COUNT 5.3 10^3/ul (4.8-10.8)
[2017-08-23] MEDS: FUROSEMIDE 40 MG TAB PO ×2 (06:00→17:57)
[2017-08-23 06:22] LABS: ANION GAP 21 (8-16); BLOOD UREA NITROGEN 50 mg/dl (7-20); CALCIUM 9.6 mg/dl (8.4-10.2); CARBON DIOXIDE 20 mmol/L (21-31); CHLORIDE 104 mmol/L (97-110); GLUCOSE 185 mg/dl (70-220); POTASSIUM 4.6 mmol/L (3.5-5.1); SODIUM 140 mmol/L (135-144)
[2017-08-23] MEDS: INSULIN ASPART [NOVOLOG] 3 ML PEN SC ×7 (07:50→21:00)
[2017-08-23] MEDS ORDERED: LIDOCAINE 1% (MPF) 30 ML INJ (08:02)
[2017-08-23] MEDS ORDERED: IOHEXOL 300MG/ML 30 ML BTL (08:02)
[2017-08-23] MEDS ORDERED: BUPIVACAINE 0.5% (SDV) 30 ML INJ (08:02)
[2017-08-23] MEDS ORDERED: HEPARIN 1000 UNITS/ML 10 ML INJ (08:02)
[2017-08-23] MEDS: DOCUSATE SODIUM 100 MG CAP PO ×2 (08:31→20:46)
[2017-08-23] MEDS: DILTIAZEM (CD) 240 MG CAP PO ×2 (08:31→11:34)
[2017-08-23] MEDS: FOLIC ACID 1 MG TAB PO (08:32)
[2017-08-23] MEDS: CHOLECALCIFEROL 400 UNITS TAB PO ×2 (08:32→20:43)
[2017-08-23] MEDS: FERROUS SULFATE (EC) 325 MG TAB PO ×2 (08:32→20:43)
[2017-08-23] MEDS: BISACODYL (EC) 5 MG TAB PO (08:32)
[2017-08-23] MEDS ORDERED: MIDAZOLAM 1 MG/ML 2 ML INJ (08:34)
[2017-08-23] MEDS ORDERED: FENTAnyl 50 MCG/ML VIAL ×2 (08:34→09:56)
[2017-08-23] MEDS: HEPARIN 1000 UNITS/ML 10 ML INJ IRR (08:53)
[2017-08-23] MEDS ORDERED: LIDOCAINE 100 MG SYRINGE (09:46)
[2017-08-23] MEDS ORDERED: PROPOFOL 20 ML (09:46)
[2017-08-23] MEDS ORDERED: CEFAZOLIN 1 GM INJ (09:46)
[2017-08-23] MEDS ORDERED: hydrALAzine 20 MG INJ IV (10:00)
[2017-08-23] MEDS ORDERED: DIPHENHYDRAMINE 50 MG INJ IV (10:00)
[2017-08-23] MEDS ORDERED: METOCLOPRAMIDE 10 MG INJ IV (10:00)
[2017-08-23] MEDS ORDERED: LABETALOL HCL 20MG INJ IV (10:00)
[2017-08-23] MEDS ORDERED: ONDANSETRON 4 MG INJ IV (10:00)
[2017-08-23] MEDS: FENTAnyl 50 MCG/ML VIAL IV ×2 (10:15→12:41)
[2017-08-23] MEDS: HYDROCODONE/APAP (5/325) TAB PO ×3 (11:04→21:47)
[2017-08-23 11:20] LABS: ALBUMIN 3.7 g/dl (3.3-4.9); ANION GAP 22 (8-16); BLOOD UREA NITROGEN 51 mg/dl (7-20); CALCIUM 9.7 mg/dl (8.4-10.2); CARBON DIOXIDE 16 mmol/L (21-31); CHLORIDE 106 mmol/L (97-110); CREATININE 7.92 mg/dl (0.44-1.00); GLUCOSE 185 mg/dl (70-220); MAGNESIUM 2.3 mg/dl (1.7-2.5); PHOSPHORUS 6.1 mg/dl (2.5-4.9); POTASSIUM 4.6 mmol/L (3.5-5.1); SODIUM 139 mmol/L (135-144)
[2017-08-23] MEDS: ONDANSETRON 4 MG INJ IV (11:35)
[2017-08-23] MEDS ORDERED: ALBUMIN HUMAN 25% 50 ML IV (14:00)
[2017-08-23] MEDS ORDERED: SODIUM CHLORIDE 0.9% 1L BAG IV (14:00)
[2017-08-23] MEDS: hydrALAzine 20 MG INJ IV (18:04)
[2017-08-24] MEDS: ACETAMINOPHEN 325 MG TAB PO (01:11)
[2017-08-24] MEDS: HYDROCODONE/APAP (5/325) TAB PO ×4 (03:56→23:05)
[2017-08-24 05:54] LABS: ADD MAN DIFF? NO; BASOPHILS % 0.5 % (0.0-2.0); EOSINOPHILS # 0.2 10^3/ul (0.0-0.5); EOSINOPHILS % 3.1 % (0.0-7.0); HEMOGLOBIN 10.5 g/dl (12.0-16.0); LYMPHOCYTES # 1.3 10^3/ul (0.8-2.9); LYMPHOCYTES % 22.5 % (15.0-51.0); MEAN CORPUSCULAR HEMOGLOBIN 31.3 pg (29.0-33.0); MEAN CORPUSCULAR HGB CONC 32.8 g/dl (32.0-37.0); MEAN CORPUSCULAR VOLUME 95.2 fl (82.0-101.0); MEAN PLATELET VOLUME 12.6 fl (7.4-10.4); MONOCYTE # 0.9 10^3/ul (0.3-0.9); NEUTROPHIL # 3.3 10^3/ul (1.6-7.5); NEUTROPHILS % 57.6 % (39.0-77.0); PLATELET COUNT 138 10^3/UL (140-415); RED BLOOD COUNT 3.36 10^6/ul (4.20-5.40); RED CELL DISTRIBUTION WIDTH 14.5 % (11.5-14.5)
[2017-08-24 05:54] LABS: WHITE BLOOD COUNT 5.8 10^3/ul (4.8-10.8)
[2017-08-24] MEDS: FUROSEMIDE 40 MG TAB PO ×2 (06:00→18:50)
[2017-08-24 06:34] LABS: ALBUMIN 3.8 g/dl (3.3-4.9); ANION GAP 18 (8-16); BLOOD UREA NITROGEN 60 mg/dl (7-20); CALCIUM 9.4 mg/dl (8.4-10.2); CARBON DIOXIDE 23 mmol/L (21-31); CHLORIDE 102 mmol/L (97-110); CREATININE 9.09 mg/dl (0.44-1.00); GLUCOSE 226 mg/dl (70-220); MAGNESIUM 2.3 mg/dl (1.7-2.5); PHOSPHORUS 5.5 mg/dl (2.5-4.9); POTASSIUM 4.8 mmol/L (3.5-5.1); SODIUM 138 mmol/L (135-144)
[2017-08-24] MEDS: DILTIAZEM (CD) 240 MG CAP PO (09:00)
[2017-08-24] MEDS: INSULIN ASPART [NOVOLOG] 3 ML PEN SC ×7 (09:16→20:34)
[2017-08-24] MEDS: ONDANSETRON 4 MG INJ IV (09:23)
[2017-08-24] MEDS: CHOLECALCIFEROL 400 UNITS TAB PO ×2 (10:26→20:26)
[2017-08-24] MEDS: FERROUS SULFATE (EC) 325 MG TAB PO ×2 (10:26→20:26)
[2017-08-24] MEDS: FOLIC ACID 1 MG TAB PO (10:26)
[2017-08-24] MEDS: DOCUSATE SODIUM 100 MG CAP PO ×2 (10:26→20:25)
[2017-08-24] MEDS: BISACODYL (EC) 5 MG TAB PO (10:26)
[2017-08-24 14:05] LABS: HEPATITIS B SURFACE ANTIGEN NEGATIVE (NEGATIVE)
[2017-08-24] MEDS: LORAZEPAM 1 MG TAB PO (15:28)
[2017-08-24] MEDS: INSULIN GLARGINE [LANtus] 3 ML PEN SC (20:28)
[2017-08-25] MEDS: HYDROCODONE/APAP (5/325) TAB PO ×3 (04:39→19:52)
[2017-08-25] MEDS: FUROSEMIDE 40 MG TAB PO ×2 (05:25→18:18)
[2017-08-25 06:13] LABS: VANCOMYCIN,RANDOM 14.1 ug/ml
[2017-08-25] MEDS: ONDANSETRON 4 MG INJ IV (08:37)
[2017-08-25] MEDS: INSULIN ASPART [NOVOLOG] 3 ML PEN SC ×7 (09:00→21:00)
[2017-08-25] MEDS: ASPIRIN 81 MG TAB PO (09:55)
[2017-08-25] MEDS: BISACODYL (EC) 5 MG TAB PO (09:56)
[2017-08-25] MEDS: FERROUS SULFATE (EC) 325 MG TAB PO ×3 (09:57→21:20)
[2017-08-25] MEDS: FOLIC ACID 1 MG TAB PO (10:00)
[2017-08-25] MEDS: DOCUSATE SODIUM 100 MG CAP PO ×2 (10:01→21:19)
[2017-08-25] MEDS: CHOLECALCIFEROL 400 UNITS TAB PO ×2 (10:02→21:20)
[2017-08-25] MEDS: DILTIAZEM (CD) 240 MG CAP PO (10:03)
[2017-08-25] MEDS: LORAZEPAM 1 MG TAB PO ×2 (10:04→22:18)
[2017-08-25] MEDS: VANCOMYCIN 1 GM 250 ML IVPB (12:52)
[2017-08-25] MEDS ORDERED: HEPARIN 1000 UNITS/ML 10 ML INJ CATHETER (18:30)
[2017-08-25] MEDS ORDERED: ALBUMIN HUMAN 25% 50 ML IV (18:30)
[2017-08-25] MEDS ORDERED: SODIUM CHLORIDE 0.9% 1L BAG IV (18:30)
[2017-08-25] MEDS: INSULIN GLARGINE [LANtus] 3 ML PEN SC (21:26)
[2017-08-26] MEDS: HYDROCODONE/APAP (5/325) TAB PO ×3 (06:51→21:16)
[2017-08-26] MEDS: FUROSEMIDE 40 MG TAB PO ×2 (06:51→18:00)
[2017-08-26] MEDS: INSULIN ASPART [NOVOLOG] 3 ML PEN SC ×7 (07:50→21:00)
[2017-08-26] MEDS: DOCUSATE SODIUM 100 MG CAP PO ×2 (15:38→21:00)
[2017-08-26] MEDS: BISACODYL (EC) 5 MG TAB PO (15:38)
[2017-08-26] MEDS: ASPIRIN 81 MG TAB PO (15:38)
[2017-08-26] MEDS: FERROUS SULFATE (EC) 325 MG TAB PO ×2 (15:39→20:44)
[2017-08-26] MEDS: CHOLECALCIFEROL 400 UNITS TAB PO ×2 (15:39→20:44)
[2017-08-26] MEDS: FOLIC ACID 1 MG TAB PO (15:39)
[2017-08-26] MEDS: HEPARIN 1000 UNITS/ML 10 ML INJ CATHETER (17:12)
[2017-08-26] MEDS: DILTIAZEM (CD) 240 MG CAP PO (17:51)
[2017-08-26] MEDS: LORAZEPAM 1 MG TAB PO (20:40)
[2017-08-26] MEDS: INSULIN GLARGINE [LANtus] 3 ML PEN SC (20:52)
== END 2017-08-26 22:37 | disposition home or self-care (01) | DRG 264 ==
LOC: E/R 10:06 → MS1 15:22
PROC: 03PY0JZ Removal of Synthetic Substitute from Upper Artery, Open Approach (ICD-10-PCS; principal; 2017-08-23 08:29)
DX: T82.868A Thrombosis due to vascular prosthetic devices, implants and grafts, initial encounter (principal); N18.6 End stage renal disease; I12.0 Hypertensive chronic kidney disease with stage 5 chronic kidney disease or end stage renal disease; E11.9 Type 2 diabetes mellitus without complications; I10 Essential (primary) hypertension; D64.9 Anemia, unspecified; Z89.612 Acquired absence of left leg above knee
CPT/HCPCS: 80048; 80053; 80069; 80202; 82962; 83735; 84100; 85025; 85610; 85730; 87340; 90935; 93005; 93971; 96372; 99285-25

== ENCOUNTER 2017-09-09 11:32 | Inpatient (IN) | payer OTHER ==
[2017-09-09 12:32] LABS: ADD MAN DIFF? NO
[2017-09-09 12:34] LABS: WHITE BLOOD COUNT 5.9 10^3/ul (4.8-10.8)
[2017-09-09 12:34] LABS: BASOPHILS % 0.5 % (0.0-2.0); EOSINOPHILS # 0.1 10^3/ul (0.0-0.5); EOSINOPHILS % 2.2 % (0.0-7.0); HEMATOCRIT 32.3 % (37.0-47.0); HEMOGLOBIN 10.3 g/dl (12.0-16.0); LYMPHOCYTES # 1.2 10^3/ul (0.8-2.9); LYMPHOCYTES % 19.6 % (15.0-51.0); MEAN CORPUSCULAR HEMOGLOBIN 31.4 pg (29.0-33.0); MEAN CORPUSCULAR HGB CONC 31.9 g/dl (32.0-37.0); MEAN CORPUSCULAR VOLUME 98.5 fl (82.0-101.0); MEAN PLATELET VOLUME 12.3 fl (7.4-10.4); MONOCYTE # 0.6 10^3/ul (0.3-0.9); MONOCYTES % 9.6 % (0.0-11.0); NEUTROPHILS % 67.8 % (39.0-77.0); PLATELET COUNT 151 10^3/UL (140-415); RED BLOOD COUNT 3.28 10^6/ul (4.20-5.40); RED CELL DISTRIBUTION WIDTH 14.4 % (11.5-14.5)
[2017-09-09 12:52] LABS: ANION GAP 17 (8-16); BLOOD UREA NITROGEN 36 mg/dl (7-20); CALCIUM 9.1 mg/dl (8.4-10.2); CARBON DIOXIDE 30 mmol/L (21-31); CHLORIDE 98 mmol/L (97-110); CREATININE 6.76 mg/dl (0.44-1.00); POTASSIUM 4.7 mmol/L (3.5-5.1); SODIUM 140 mmol/L (135-144)
[2017-09-09 12:58] LABS: GLUCOSE 404 mg/dl (70-220)
[2017-09-09 13:04] LABS: INR 0.92; PROTIME 12.4 Sec (11.9-14.9)
[2017-09-09 13:05] LABS: PARTIAL THROMBOPLASTIN TIME 31.2 Sec (25.0-35.0)
[2017-09-09] MEDS ORDERED: MAGNESIUM HYDROXIDE 30ML CUP PO (14:30)
[2017-09-09] MEDS ORDERED: morphine 2 MG INJ IV (14:30)
[2017-09-09] MEDS ORDERED: DOCUSATE SODIUM 100 MG CAP PO (14:30)
[2017-09-09] MEDS ORDERED: NACL 0.9% 3 ML SYG IV (14:30)
[2017-09-09] MEDS ORDERED: INSULIN LISPRO 100 UNIT/ML VIAL SC (14:30)
[2017-09-09] MEDS ORDERED: BISACODYL (EC) 5 MG TAB PO (14:30)
[2017-09-09] MEDS ORDERED: ONDANSETRON 4 MG INJ IV (14:30)
[2017-09-09] MEDS ORDERED: ASPIRIN 81 MG TAB PO (14:30)
[2017-09-09] MEDS ORDERED: HYDROCODONE/APAP (5/325) TAB PO (14:30)
[2017-09-09] MEDS ORDERED: ACETAMINOPHEN 325 MG TAB PO ×2 (14:30)
[2017-09-09] MEDS ORDERED: GLUCOSE GEL 15 GRAM TUBE PO ×2 (15:00)
[2017-09-09] MEDS ORDERED: DEXTROSE 50% 50 ML SYRINGE IV ×2 (15:00)
[2017-09-09] MEDS ORDERED: GLUCAGON 1 MG INJ IM (15:00)
[2017-09-09] MEDS ORDERED: GLUCOSE GEL 15 GRAM TUBE BUCCAL (15:00)
[2017-09-09] MEDS: DILTIAZEM (CD) 240 MG CAP PO (15:47)
[2017-09-09] MEDS ORDERED: INSULIN ASPART [NOVOLOG] 3 ML PEN SC (16:00)
[2017-09-09] MEDS ORDERED: IODIXANOL LOCM 100 ML BTL (16:38)
[2017-09-09] MEDS ORDERED: HEPARIN 1000 UNITS/ML 10 ML INJ (16:38)
[2017-09-09] MEDS ORDERED: FENTAnyl 50 MCG/ML VIAL (16:38)
[2017-09-09] MEDS ORDERED: LIDOCAINE 1% (MDV) 20 ML INJ (16:38)
[2017-09-09] MEDS ORDERED: MIDAZOLAM 1 MG/ML 2 ML INJ (16:38)
[2017-09-09] MEDS ORDERED: CEFAZOLIN 2 GM/50 ML (PMX) 50 ML IVPB (16:51)
[2017-09-09] MEDS: FUROSEMIDE 40 MG TAB PO (17:32)
[2017-09-09] MEDS: CALCIUM ACETATE 667 MG CAP PO (17:32)
[2017-09-09] MEDS: INSULIN ASPART [NOVOLOG] 3 ML PEN SC ×3 (17:34→21:00)
[2017-09-09] MEDS ORDERED: SODIUM CHLORIDE 0.9% 1L BAG IV (18:30)
[2017-09-09] MEDS ORDERED: ALBUMIN HUMAN 25% 50 ML IV (18:30)
[2017-09-09] MEDS: CHOLECALCIFEROL 400 UNITS TAB PO (20:11)
[2017-09-09] MEDS: LACTOBACILLUS RHAMNOSUS CAP PO (20:11)
[2017-09-09] MEDS: FERROUS SULFATE (EC) 325 MG TAB PO (20:11)
[2017-09-09] MEDS: HYDROCODONE/APAP (10/325) TAB PO (20:11)
[2017-09-09] MEDS: DOCUSATE SODIUM 100 MG CAP PO (21:00)
[2017-09-09] MEDS: HEPARIN 5,000 UNIT/0.5 ML VIAL SC (21:39)
[2017-09-09] MEDS: INSULIN GLARGINE [LANtus] 3 ML PEN SC (21:42)
[2017-09-09] MEDS: LORAZEPAM 0.5 MG TAB PO (22:14)
[2017-09-10] MEDS: HYDROCODONE/APAP (10/325) TAB PO ×2 (00:34→06:21)
[2017-09-10] MEDS: ACCU-CHEK XX (02:06)
[2017-09-10] MEDS: HEPARIN 5,000 UNIT/0.5 ML VIAL SC (05:57)
[2017-09-10] MEDS: ONDANSETRON 4 MG INJ IV (05:58)
[2017-09-10] MEDS: FUROSEMIDE 40 MG TAB PO (06:01)
[2017-09-10] MEDS: CALCIUM ACETATE 667 MG CAP PO ×2 (07:35→12:13)
[2017-09-10] MEDS: FERROUS SULFATE (EC) 325 MG TAB PO (08:18)
[2017-09-10] MEDS: ASPIRIN 81 MG TAB PO (08:19)
[2017-09-10] MEDS: DOCUSATE SODIUM 100 MG CAP PO (08:19)
[2017-09-10] MEDS: CHOLECALCIFEROL 400 UNITS TAB PO (08:19)
[2017-09-10] MEDS: LACTOBACILLUS RHAMNOSUS CAP PO (08:19)
[2017-09-10] MEDS: INSULIN ASPART [NOVOLOG] 3 ML PEN SC ×4 (08:23→12:18)
[2017-09-10] MEDS: DILTIAZEM (CD) 240 MG CAP PO (08:36)
[2017-09-10 11:23] LABS: ADD MAN DIFF? NO
[2017-09-10 11:29] LABS: BASOPHILS % 0.6 % (0.0-2.0); EOSINOPHILS # 0.1 10^3/ul (0.0-0.5); EOSINOPHILS % 2.9 % (0.0-7.0); HEMATOCRIT 30.3 % (37.0-47.0); HEMOGLOBIN 9.8 g/dl (12.0-16.0); LYMPHOCYTES # 1.1 10^3/ul (0.8-2.9); LYMPHOCYTES % 22.8 % (15.0-51.0); MEAN CORPUSCULAR HEMOGLOBIN 31.3 pg (29.0-33.0); MEAN CORPUSCULAR HGB CONC 32.3 g/dl (32.0-37.0); MEAN CORPUSCULAR VOLUME 96.8 fl (82.0-101.0); MEAN PLATELET VOLUME 12.8 fl (7.4-10.4); MONOCYTE # 0.6 10^3/ul (0.3-0.9); MONOCYTES % 13.4 % (0.0-11.0); NEUTROPHIL # 2.9 10^3/ul (1.6-7.5); NEUTROPHILS % 60.1 % (39.0-77.0); PLATELET COUNT 145 10^3/UL (140-415); RED BLOOD COUNT 3.13 10^6/ul (4.20-5.40); RED CELL DISTRIBUTION WIDTH 14.6 % (11.5-14.5)
[2017-09-10 11:29] LABS: WHITE BLOOD COUNT 4.8 10^3/ul (4.8-10.8)
[2017-09-10 11:58] LABS: ALANINE AMINOTRANSFERASE 20 IU/L (13-69); ALBUMIN 3.3 g/dl (3.3-4.9); ALBUMIN/GLOBULIN RATIO 1.06; ALKALINE PHOSPHATASE 110 IU/L (42-121); ANION GAP 14 (8-16); ASPARTATE AMINO TRANSFERASE 23 IU/L (15-46); BLOOD UREA NITROGEN 31 mg/dl (7-20); CALCIUM 9.2 mg/dl (8.4-10.2); CARBON DIOXIDE 33 mmol/L (21-31); CHLORIDE 98 mmol/L (97-110); CREATININE 6.02 mg/dl (0.44-1.00); GLUCOSE 185 mg/dl (70-220); MAGNESIUM 2.1 mg/dl (1.7-2.5); POTASSIUM 4.5 mmol/L (3.5-5.1); SODIUM 140 mmol/L (135-144); TOTAL PROTEIN 6.4 g/dl (6.1-8.1)
[2017-09-10] MEDS: FOLIC ACID 1 MG TAB PO (12:13)
== END 2017-09-10 13:41 | disposition home or self-care (01) | DRG 314 ==
LOC: E/R 11:32 → MS3 14:09
PROC: 0J2TXYZ Change Other Device in Trunk Subcutaneous Tissue and Fascia, External Approach (ICD-10-PCS; principal; 2017-09-09 16:43)
PROC: 5A1D70Z Performance of Urinary Filtration, Intermittent, Less than 6 Hours Per Day (ICD-10-PCS; 2017-09-09 16:43)
DX: T82.49XA Other complication of vascular dialysis catheter, initial encounter (principal); N18.6 End stage renal disease; I12.0 Hypertensive chronic kidney disease with stage 5 chronic kidney disease or end stage renal disease; Z99.2 Dependence on renal dialysis; E11.8 Type 2 diabetes mellitus with unspecified complications; Z79.4 Long term (current) use of insulin; M54.9 Dorsalgia, unspecified; D63.1 Anemia in chronic kidney disease
CPT/HCPCS: 71045; 80048; 80053; 82962; 83735; 85025; 85610; 85730; 90935; 93005; 99285-25

== ENCOUNTER 2018-04-21 16:35 | Emergency (ER) | payer OTHER | END 2018-04-21 18:12 | disposition home or self-care (01) | LOC: FTE 16:35 | DX: H61.21 Impacted cerumen, right ear (principal); H92.01 Otalgia, right ear; E11.22 Type 2 diabetes mellitus with diabetic chronic kidney disease; N18.9 Chronic kidney disease, unspecified; I12.9 Hypertensive chronic kidney disease with stage 1 through stage 4 chronic kidney disease, or unspecified chronic kidney disease; Z79.4 Long term (current) use of insulin; Z79.82 Long term (current) use of aspirin | CPT/HCPCS: 69209; 99283-25 ==

== ENCOUNTER 2018-07-03 13:42 | Emergency (ER) | payer OTHER, BC ==
[2018-07-03] MEDS: HYDROCODONE/APAP (5/325) TAB PO (16:29)
== END 2018-07-03 19:04 | disposition home or self-care (01) ==
LOC: FTE 13:42
DX: M54.2 Cervicalgia (principal); E11.22 Type 2 diabetes mellitus with diabetic chronic kidney disease; N18.9 Chronic kidney disease, unspecified; I12.9 Hypertensive chronic kidney disease with stage 1 through stage 4 chronic kidney disease, or unspecified chronic kidney disease; Z79.4 Long term (current) use of insulin; Z79.82 Long term (current) use of aspirin; Z99.2 Dependence on renal dialysis
CPT/HCPCS: 72040; 72125; 73030; 99284-25

== ENCOUNTER 2019-01-02 11:31 | Emergency (ER) | payer OTHER, BC ==
[2019-01-02 15:16] LABS: ADD MAN DIFF? NO
[2019-01-02 15:18] LABS: MEAN CORPUSCULAR HEMOGLOBIN 31.3 pg (29.0-33.0); MEAN CORPUSCULAR HGB CONC 30.6 g/dl (32.0-37.0); MEAN CORPUSCULAR VOLUME 102.6 fl (82.0-101.0); MEAN PLATELET VOLUME 12.3 fl (7.4-10.4); PLATELET COUNT 126 10^3/UL (140-415); RED BLOOD COUNT 3.51 10^6/ul (4.20-5.40); RED CELL DISTRIBUTION WIDTH 14.5 % (11.5-14.5)
[2019-01-02 15:18] LABS: WHITE BLOOD COUNT 3.3 10^3/ul (4.8-10.8)
[2019-01-02 15:36] LABS: INR 1.05; PROTIME 13.8 Sec (11.9-14.9); PT RATIO 1.1
[2019-01-02 15:37] LABS: PARTIAL THROMBOPLASTIN TIME 29.2 Sec (23.0-35.0)
[2019-01-02 15:48] LABS: ANION GAP 9 (5-13); BLOOD UREA NITROGEN 36 mg/dl (7-20); CALCIUM 9.3 mg/dl (8.4-10.2); CARBON DIOXIDE 31 mmol/L (21-31); CHLORIDE 94 mmol/L (97-110); CREATININE 6.81 mg/dl (0.44-1.00); Estimated GFR 8 mL/min (>60); GLUCOSE 196 mg/dl (70-220); POTASSIUM 4.5 mmol/L (3.5-5.1); SODIUM 134 mmol/L (135-144)
[2019-01-02 17:25] LABS: ANISOCYTOSIS 1+ (0-0); BASOPHIL #M 0.1 10^3/ul (0.0-0.0); BASOPHILS % (M) 5 % (0-2); BURR CELLS 2+ (0-0); EOSINOPHILS % (M) 1 % (0-7); LYMPHOCYTES #M 1.7 10^3/ul (0.8-2.9); LYMPHOCYTES % (M) 53 % (15-51); MONOCYTE #M 0.8 10^3/ul (0.3-0.9); MONOCYTES % (M) 26 % (0-11); PLATELET ESTIMATE NORMAL; POIKILOCYTOSIS 1+ (0-0); POLYCHROMASIA 1+ (0-0); SEGMENTED NEUTROPHILS (M) % 15 % (39-77); SMUDGE%M 2 % (0-0); TEAR DROP CELLS 1+ (0-0)
== END 2019-01-02 16:06 | disposition home or self-care (01) ==
LOC: E/R 16:06
DX: L98.499 Non-pressure chronic ulcer of skin of other sites with unspecified severity (principal); I12.0 Hypertensive chronic kidney disease with stage 5 chronic kidney disease or end stage renal disease; N18.6 End stage renal disease; E11.22 Type 2 diabetes mellitus with diabetic chronic kidney disease; Z79.4 Long term (current) use of insulin; Z79.82 Long term (current) use of aspirin; Z99.2 Dependence on renal dialysis
CPT/HCPCS: 80048; 85025; 85610; 85730; 93005; 93931; 99285-25